=== PATIENT | female | born 1960 | race Hispanic/Latino ===

== ENCOUNTER 2018-10-05 18:08 | Emergency (ER) | payer OTHER ==
--- OUTSIDE RECORDS SUMMARY | 2018-10-05 18:10 | XMS REPORT | Clinical Summary ---
:1960 Author Organization [facility] Address [address] [place] [address] Care Team Providers Name Role Phone Lora Morgan Primary Care Provider Allergies Active Allergy Reactions Severity Noted Date Comments Tree And Shrub Pollen Rash Low 07/12/2015 Headache Medications Medication Sig Dispensed Refills Start Date End Date Status valsartan (DIOVAN) 80 MG Take 80 mg by 0 Active tablet mouth daily. dexlansoprazole 60 mg Take 60 mg by 0 Active capsule mouth daily. esomeprazole (NEXIUM) 40 Take 40 mg by 0 Active MG capsuleIndications: mouth daily. Autoimmune hepatitis (HCC), Cirrhosis of liver without ascites, unspecified hepatic cirrhosis type (HCC), Gallbladder polyp, Immunity status testing, Thrombocytopenia (HCC), Patient is Christian azaTHIOprine (IMURAN) 50 Take 50 mg by 0 Active mg tabletIndications: mouth daily. Autoimmune hepatitis (HCC), Cirrhosis of liver without ascites, unspecified hepatic cirrhosis type (HCC), Gallbladder polyp, Immunity status testing, Thrombocytopenia (HCC), Patient is Christian Active Problems Problem Noted Date Autoimmune hepatitis 07/12/2015 Last Assessment & Plan: Diagnosed with AIH based on liver biopsy in October 2013. Liver biopsy reveals severe inflammation and fibrosis. She was initially treated with prednisone taper and azathioprine. She continue azathioprine 50 mg daily with normal transaminases. Updated labs today including viral and autoimmune markers. Cirrhosis of liver 07/12/2015 Last Assessment & Plan: Cirrhosis diagnosed in October 2013 via liver biopsy. She has not had any episodes of decompensation. 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 Etiology of thrombocytopenia may be secondary to azathioprine. Await updated labs and imaging review. Synthetic function is preserved by (05/28/2015) labs (Cr 0.62, Alb 4.3, Tbili 0.6, INR- unknow n). Unable to calculate MELD- updated labs today for reassessment. Discussed risk of hepatic decompensation with cholecystectomy. Additional work up to determine if she needs listing for OLT prior to open cholecystectomy. Gallbladder polyp 07/12/2015 Last Assessment & Plan: She has an enlarging gallbladder polyp which is currently measuring 1.7 cm. She is without symptoms. Recent labs reveal preserved hepatic function, abdominal MRI without evidence of portal hypertension, recent EGD without varices. She does have thrombocytopenia- etiology could be secondary to bone marrow suppression secondary to azathioprine v/s portal hypertension. Updated labs today evaluating hepatic function including MELD and screening for different etiologies of liver disease. Outside abdominal US and MRI to be reviewed at radiology conference for assessment of polyp/cirrhosis/portal hypertension. Due to risk of bleeding with surgery in the setting of cirrhosis and patient being a Jevohah's Witness- case will be discussed with Dr. Gonzalez. If Dr. Gonzalez approves of proceeding- she will need cardiac and anesthesia clearance, pre-operative labs, chest xray, pulmonary function tests, and arterial blood gas prior to surgery. Discussed risks for open cholecystectomy including bleeding, infection, damage to common bile duct, and hepatic decompensation. She will not accept blood products but is agreeable to continuous cell saver and liver transplant. Immunity status testing 07/12/2015 Last Assessment & Plan: All patients with chronic liver disease, regardless of etiology, should be immunized to prevent hepatitis A and hepatitis B if they are not already immune. We will test for immunity to both viruses - [facility] recommendations will follow. Thrombocytopenia 07/12/2015 Last Assessment & Plan: Etiology unclear- secondary to portal hypertension verses bone marrow suppression secondary to azathioprine. Await additional work up. Patient is Christian 07/12/2015 Last Assessment & Plan: She will not accept blood products. She is agreeable to cell saver and liver transplant if needed. Family History Medical History Relation Name Comments Unremarkable Brother Unremarkable Brother Vision loss Father Glucoma Diabetes Mother Unremarkable Son Relation Name Status Comments Brother Alive Brother Alive Father Glucoma Alive Mother Alive Son Alive Social History Tobacco Use Types Packs/Day Years Used Date Never Smoker Smokeless Tobacco: Never Used Alcohol Use Drinks/Week oz/Week Comments Yes socially Sex Assigned at Date Recorded Not on file Job Start Date Occupation Industry Not on file Not on file Not on file Travel History Travel Start Travel End No recent travel history available. Last Filed Vital Signs Not on file Plan of Treatment Health Maintenance Due Date Last Done Comments INFLUENZA VACCINE 12/17/2017 Results Not on fileafter 10/04/2017 Insurance Payer Benefit Plan / Group Subscriber ID Type Phone Address [employer]ETNA - [employer] CARE AETNA HMO POS QPOS xxxxxxxxx HMO/POS ([place]) [place] [address] Advance Directives Patient has advance care planning documents on file. For more information, please contact:[address] [phone]
--- OUTSIDE RECORDS SUMMARY | 2018-10-05 18:10 | XMS REPORT | Clinical Summary ---
:1960 Author Organization [facility] Address [address] [place] [id number] Care Team Providers Name Role Phone Dionna Hsieh MD Primary Care Provider Allergies Active Allergy Reactions Severity Noted Date Comments Tree And Shrub Pollen Other (See Comments) Medium 05/26/2015 Headache Medications Medication Sig Dispensed Refills Start Date End Date Status azaTHIOprine (IMURAN) Take 50 mg by 0 Active 50 mg tablet mouth 2 (two) times a day. esomeprazole (NexIUM) Take 40 mg by 0 Active 40 MG capsule mouth once daily. cholecalciferol, Take 1,000 Units 0 Active vitamin D3, (VITAMIN by mouth daily. D3) 1,000 unit capsule MULTIVITAMIN ORAL Take 1 capsule by 0 Active mouth daily. mometasone (NASONEX) 50 2 sprays into 11 05/25/2017 Active mcg/actuation nasal each nostril spray daily. Active Problems Problem Noted Date Gastroesophageal reflux disease 09/01/2015 Bruises easily 05/26/2015 HLD (hyperlipidemia) 05/26/2015 Macrocytosis without anemia 05/26/2015 Pleuritic pain 05/26/2015 Proteinuria 05/26/2015 Shoulder pain 05/26/2015 Right Pleural Effusion 12/17/2013 Overview: "was noticed in a shoulder x-ray, done a few days ago, CT did not show pleural effusion." Autoimmune hepatitis 11/17/2013 Hepatic cirrhosis 11/17/2013 Overview: "biopsy proven per verbal report" Cirrhosis GERD (gastroesophageal reflux disease) Diverticulosis Encounters Date Type Specialty Care Team Description 05/09/2018 Hospital Encounter Radiology Arsenio Quesada, Abdominal pain , right MD upper quadrant 04/26/2018 Transcribe Orders Access Arsenio Quesada, Abdominal pain, right MD upper quadrant (Primary Dx) after 10/04/2017 Immunizations Name Dates Previously Given Next Due INFLUENZA QUAD 01/01/2017 Influenza, Unspecified 03/19/2012 Pneumococcal Conjugate 13-Valent 05/19/2014 Pneumococcal Polysaccharide 01/01/2017 Family History Medical History Relation Name Comments Hypertension Father Diabetes Mother Hypertension Mother Relation Name Status Comments Brother Alive Father Alive Mother Alive Social History Tobacco Use Types Packs/Day Years Used Date Never Smoker Smokeless Tobacco: Never Used Alcohol Use Drinks/Week oz/Week Comments No Sex Assigned at Date Recorded Not on file Job Start Date Occupation Industry Not on file Not on file Not on file Travel History Travel Start Travel End No recent travel history available. Last Filed Vital Signs Not on file Plan of Treatment Health Maintenance Due Date Last Done Comments SHINGLES VACCINES (#1) 2010 INFLUENZA VACCINE 10/17/2018 01/01/2017, 03/19/2012 BREAST CANCER SCREENING 12/29/2018 12/29/2016, 08/17/2014 COLONOSCOPY SCREENING 08/18/2023 08/17/2013 Procedures Procedure Name Priority Date/Time Associated Comments Diagnosis NM HEPATOBILIARY W Routine 05/09/2018 3:59 Abdominal pain, Results for this PHARM PM DUST COLLECTOR TREATER right upper procedure are in quadrant the results section. after 10/04/2017 Results NM Hepatobiliary W Pharm (HIDA Scan w Pharm) (05/09/2018 3:59 PM DUST COLLECTOR TREATER) Specimen Narrative Performed At PROCEDURE:NM HEPATOBILIARY W PHARM (HIDA SCAN W PHARM) RADIANT INDICATION: Abdominal pain. TECHNIQUE: The patient was injected with 5 mCi of Tc-99m Choletec and planar dynamic images of the abdomen were acquired for one hour. The patient was then injected with a standard dose of IV CCK and a gallbladder ejection fraction was calculated. FINDINGS: Tracer is seen within the gallbladder and small bowel by one hour.After CCK infusion, there is normal contraction of the gallbladder.Reflux into the stomach is noted.Calculated gallbladder ejection fraction is 53%.Normal is greater than 30%. IMPRESSION: 1.Functionally normal study. 2.Enterogastric reflux. [facility]-[id number] Procedure Note Interface, Radiology Results Incoming - 05/09/2018 5:28 PM DUST COLLECTOR TREATER PROCEDURE: NM HEPATOBILIARY W PHARM (HIDA SCAN W PHARM) INDICATION: Abdominal pain. TECHNIQUE: The patient was injected with 5 mCi of Tc-99m Choletec and planar dynamic images of the abdomen were acquired for one hour. The patient was then injected with a standard dose of IV CCK and a gallbladder ejection fraction was calculated. FINDINGS: Tracer is seen within the gallbladder and small bowel by one hour. After CCK infusion, there is normal contraction of the gallbladder. Reflux into the stomach is noted. Calculated gallbladder ejection fraction is 53%. Normal is greater than 30%. IMPRESSION: 1. Functionally normal study. 2. Enterogastric reflux. [facility]-[id number] Performing Organization Address [facility]/State[facility] Phone Number [facility] [address] [place] [address] after 10/04/2017 ([place]) [place] [address] Advance Directives Patient has advance care planning documents on file. For more information, please contact:[facility] [place] [address]
[2018-10-05 18:56] LABS: Urine Blood 2+ (NEG); Urine Glucose NEGATIVE (NEG); Urine Protein TRACE (NEG); Urine Specific Gravity <1.005 (1.005-1.030)
[2018-10-05 19:02] LABS: Urine Bacteria 20-50 /HPF (<20); Urine Culture Reflex Order REFLEXED; Urine RBC <5 /HPF (NONE SEEN)
[2018-10-05] MEDS ORDERED: IBUPROFEN 400 MG TAB ONE (19:12)
--- NOTE | 2018-10-05 19:17 | RAD REPORT ---
EXAM DESCRIPTION: Lauren Casillas (2 Views)10/05/2018 7:11 pm CLINICAL HISTORY: Cough COMPARISON: None FINDINGS: A few areas of scarring or subsegmental atelectasis are present within the left lung base . The right lung is clear of acute infiltrate. The heart is normal size
--- NOTE | 2018-10-05 19:37 | ER ---
Nurse's Notes [facility] Name: Joyce Malik Age: 58 yrs Sex: Female : 1960 Arrival Date: 10/05/2018 Time: 18:10 Bed 30 Private MD: Unknown, Unknown Diagnosis: Urinary tract infection, site not specified Presentation: 10/05 18:20 Presenting complaint: Patient states: Fever, chills, shortness of breath that started aj1 today. Patient reports that she has had dysuria for the past week. Transition of care: patient was not received from another setting of care. Onset of symptoms was October 05, 2018. Risk Assessment: Do you want to hurt yourself or someone else? Patient reports no desire to harm self or others. Initial Sepsis Screen: Does the patient meet any 2 criteria? Temp <36.0*C (96.8*F)) or > 38.3*C (100.9*F). HR > 90 bpm. Yes Does the patient have a suspected source of infection? Yes: Dysuria/Frequency/Urgency/UTI. Care prior to arrival: None. 18:20 Method Of Arrival: Ambulatory aj1 18:20 Acuity: GAMA 3 aj1 Triage Assessment: 18:29 General: Appears in no apparent distress. comfortable, ill, Behavior is calm, aj1 cooperative, appropriate for age. Pain: Denies pain. Neuro: Level of Consciousness is awake, alert, obeys commands, Oriented to person, place, time, situation. Cardiovascular: Patient's skin is warm and dry. Respiratory: Reports shortness of breath Airway is patent Respiratory effort is even, unlabored, Respiratory pattern is regular, symmetrical. GI: No signs and/or symptoms were reported involving the gastrointestinal system. : Reports burning with urination. Historical: - Allergies: 18:29 No Known Allergies; aj1 - Home Meds: 18:29 sucralfate Oral [Active]; Azathioprine Oral [Active]; esomeprazole magnesium oral oral aj1 [Active]; - PMHx: 18:29 Cirrhosis; aj1 - PSHx: 18:29 ; aj1 - Immunization history:: Flu vaccine is up to date. - Social history:: Smoking status: Patient/guardian denies using tobacco. - Ebola Screening: : Patient denies travel to an Ebola-affected area in the 21 days before illness onset. Screenin:58 Abuse screen: Denies threats or abuse. Nutritional screening: No deficits noted. la1 Tuberculosis screening: No symptoms or risk factors identified. Fall Risk None identified. Assessment: 18:57 General: Appears in no apparent distress. Behavior is calm, cooperative. Neuro: Level la1 of Consciousness is awake, alert, obeys commands, Oriented to person, place, time, situation. Cardiovascular: Capillary refill < 3 seconds Patient's skin is warm and dry. Respiratory: Airway is patent Respiratory effort is even, unlabored, Respiratory pattern is regular, symmetrical, Breath sounds are clear bilaterally. GI: No signs and/or symptoms were reported involving the gastrointestinal system. : Reports burning with urination. Vital Signs: 18:29 BP 106 / 67; Pulse 94; Resp 18; Temp 101.4(TE); Pulse Ox 99% on R/A; Weight 67.13 kg aj1 (R); Height 5 ft. 0 in. (152.40 cm) (R); Pain 0/10; 19:37 Temp 101.0; la1 18:29 Body Mass Index 28.90 (67.13 kg, 152.40 cm) aj1 ED Course: 18:10 Patient arrived in ED. ag5 18:12 Unknown, Unknown is Private Physician. ag5 18:22 Triage completed. aj1 18:29 Arm band placed on Patient placed in an exam room. aj1 18:31 Park Stauffer FNP-C is [facility]. kb 18:31 Arsh Valles MD is Attending Physician. kb 18:32 Kwaku Chowdhury RN is Primary Nurse. la1 18:58 Call light in reach. Side rails up X 1. la1 19:11 Chest Pa And Lat (2 Views) XRAY In Process Unspecified. EDMS 19:38 No provider procedures requiring assistance completed. Patient did not have IV access la1 during this emergency room visit. Administered Medications: 18:57 Drug: Ibuprofen 400 mg Route: PO; la1 19:26 Follow up: Response: No adverse reaction; Temperature is decreased la1 19:22 CANCELLED (Duplicate Order): Cipro 500 mg PO once kb 19:26 Drug: Augmentin 875 mg Route: PO; la1 19:27 Follow up: Response: Medication administered at discharge. la1 Outcome: 19:32 Discharge ordered by . pb 19:38 Discharged to home ambulatory. la1 19:38 Condition: stable 19:38 Discharge instructions given to patient, Instructed on discharge instructions, follow up and referral plans. medication usage, Demonstrated understanding of instructions, follow-up care, medications, Prescriptions given X 1. 19:38 Patient left the ED. la1 Signatures: Dispatcher [employer] EDIA Park Stauffer, WOOD GRINDER-C KELLY-Lili Yoder RN RN aj1 Kwaku Chowdhury RN RN la1 [place] ag5
--- NOTE | 2018-10-05 19:37 | EDPHYS ---
Physician Documentation [facility] Name: Joyce Malik Age: 58 yrs Sex: Female : 1960 Arrival Date: 10/05/2018 Time: 18:10 Bed 30 Private MD: Unknown, Unknown ED Physician Arsh Valles HPI: 10/05 19:32 This 58 yrs old Female presents to ER via Ambulatory with complaints of Fever, kb CHILLS, Urinary Problem. 19:33 The patient presents with urinary symptoms, dysuria, frequency. Onset: The kb symptoms/episode began/occurred 1 week(s) ago. Modifying factors: The symptoms are alleviated by nothing, the symptoms are aggravated by urinating. Associated signs and symptoms: Pertinent positives: dysuria, fever, urinary frequency. Severity of symptoms: At their worst the symptoms were moderate, in the emergency department the symptoms are unchanged. The patient has not experienced similar symptoms in the past. The patient has not recently seen a physician. Pt reports dysuria for a week, then fever since yesterday. Hasn't been able to get the fever down with 200mg of ibuprofen.. Historical: - Allergies: 18:29 No Known Allergies; aj1 - Home Meds: 18:29 sucralfate Oral [Active]; Azathioprine Oral [Active]; esomeprazole magnesium oral oral aj1 [Active]; - PMHx: 18:29 Cirrhosis; aj1 - PSHx: 18:29 ; aj1 - Immunization history:: Flu vaccine is up to date. - Social history:: Smoking status: Patient/guardian denies using tobacco. - Ebola Screening: : Patient denies travel to an Ebola-affected area in the 21 days before illness onset. ROS: 19:30 ENT: Negative for injury, pain, and discharge, Neck: Negative for injury, pain, and kb swelling, Cardiovascular: Negative for chest pain, palpitations, and edema, Abdomen/GI: Negative for abdominal pain, nausea, vomiting, diarrhea, and constipation, Back: Negative for injury and pain, MS/Extremity: Negative for injury and deformity, Skin: Negative for injury, rash, and discoloration, Neuro: Negative for headache, weakness, numbness, tingling, and seizure. 19:30 Constitutional: Positive for fever, Negative for body aches, chills, fatigue, malaise, poor PO intake, weight loss. 19:30 Respiratory: Positive for cough, Negative for dyspnea on exertion, hemoptysis, orthopnea, pleurisy, shortness of breath, sputum production, wheezing. 19:30 : Positive for urinary symptoms, urinary frequency, burning with urination. Exam: 19:31 Constitutional: This is a well developed, well nourished patient who is awake, alert, kb and in no acute distress. Head/Face: Normocephalic, atraumatic. ENT: Nares patent. No nasal discharge, no septal abnormalities noted. Tympanic membranes are normal and external auditory canals are clear. Oropharynx with no redness, swelling, or masses, exudates, or evidence of obstruction, uvula midline. Mucous membranes moist. Neck: Trachea midline, no thyromegaly or masses palpated, and no cervical lymphadenopathy. Supple, full range of motion without nuchal rigidity, or vertebral point tenderness. No Meningismus. Chest/axilla: Normal chest wall appearance and motion. Nontender with no deformity. No lesions are appreciated. Cardiovascular: Regular rate and rhythm with a normal S1 and S2. No gallops, murmurs, or rubs. Normal PMI, no JVD. No pulse deficits. Respiratory: Lungs have equal breath sounds bilaterally, clear to auscultation and percussion. No rales, rhonchi or wheezes noted. No increased work of breathing, no retractions or nasal flaring. Abdomen/GI: Soft, non-tender, with normal bowel sounds. No distension or tympany. No guarding or rebound. No evidence of tenderness throughout. Back: No spinal tenderness. No costovertebral tenderness. Full range of motion. Skin: Warm, dry with normal turgor. Normal color with no rashes, no lesions, and no evidence of cellulitis. MS/ Extremity: Pulses equal, no cyanosis. Neurovascular intact. Full, normal range of motion. Neuro: Awake and alert, GCS 15, oriented to person, place, time, and situation. Cranial nerves II-XII grossly intact. Motor strength 5/5 in all extremities. Sensory grossly intact. Cerebellar exam normal. Normal gait. Vital Signs: 18:29 BP 106 / 67; Pulse 94; Resp 18; Temp 101.4(TE); Pulse Ox 99% on R/A; Weight 67.13 kg aj1 (R); Height 5 ft. 0 in. (152.40 cm) (R); Pain 0/10; 19:37 Temp 101.0; la1 18:29 Body Mass Index 28.90 (67.13 kg, 152.40 cm) aj MDM: 18:31 Patient medically screened. kb 19:29 Data reviewed: vital signs, nurses notes. Data interpreted: Pulse oximetry: on room air kb is 99 %. Interpretation: normal. Counseling: I had a detailed discussion with the patient and/or guardian regarding: the historical points, exam findings, and any diagnostic results supporting the discharge/admit diagnosis, lab results, radiology results, the need for outpatient follow up, a family practitioner, to return to the emergency department if symptoms worsen or persist or if there are any questions or concerns that arise at home. 10/05 18:46 Order name: Urine Microscopic Only; Complete Time: 19:06 hb 10/05 18:50 Order name: Urine Dipstick--Ancillary (enter results); Complete Time: 18:57 hb 10/05 18:48 Order name: Chest Pa And Lat (2 Views) XRAY; Complete Time: 19:20 kb 10/05 19:04 Order name: Urine Culture EDAL 10/05 18:32 Order name: Urine Dipstick-Ancillary (obtain specimen); Complete Time: 18:50 kb Administered Medications: 18:57 Drug: Ibuprofen 400 mg Route: PO; la1 19:26 Follow up: Response: No adverse reaction; Temperature is decreased la1 19:22 CANCELLED (Duplicate Order): Cipro 500 mg PO once kb 19:26 Drug: Augmentin 875 mg Route: PO; la1 19:27 Follow up: Response: Medication administered at discharge. la1 Disposition: 10/06 07:20 Co-signature as Attending Physician, Arsh Valles MD. Disposition: 10/05/18 19:32 Discharged to Home. Impression: Urinary tract infection, site not specified. - Condition is Stable. - Discharge Instructions: Urinary Tract Infection, Adult, [id number]. - Prescriptions for Augmentin 875- 125 mg Oral Tablet - take 1 tablet by ORAL route every 12 hours for 10 days; 20 tablet. - Medication Reconciliation Form, Thank You Letter, Antibiotic Education, Prescription Opioid Use form. - Follow up: Emergency Department; When: As needed; Reason: Worsening of condition. Follow up: Private Physician; When: 2 - 3 days; Reason: Recheck today's complaints, Continuance of care, Re-evaluation by your physician. Signatures: Dispatcher [employer] EDMS Stauffer [place], GREG SHORT HAUL DRIVER-Lili Yoder, RN RN aj1 Kwaku Chowdhury RN RN la1 Arsh Valles MD MD gs Corrections: (The following items were deleted from the chart) 10/05 19:22 19:22 Cipro 500 mg PO once ordered. kb kb 19:38 19:32 10/05/2018 19:32 Discharged to Home. Impression: Urinary tract infection, site la1 not specified. Condition is Stable. Forms are Medication Reconciliation Form, Thank You Letter, Antibiotic Education, Prescription Opioid Use. Follow up: Emergency Department; When: As needed; Reason: Worsening of condition. Follow up: Private Physician; When: 2 - 3 days; Reason: Recheck today's complaints, Continuance of care, Re-evaluation by your physician. kb
[2018-10-05] MEDS ORDERED: AMOX/K CLAV 875 MG TAB ONE (19:41)
[2018-10-05] MEDS ORDERED: ACETAMINOPHEN 325 MG TABLET ONE (19:49)
== END 2018-10-05 19:38 | disposition home or self-care (01) ==
LOC: ER 18:08
DX: N39.0 Urinary tract infection, site not specified (principal); K74.60 Unspecified cirrhosis of liver
CPT/HCPCS: 71046; 81003; 81015; 87077; 87086; 87088; 87186; 99283